=== PATIENT | female | born 2000 | race Caucasian/White ===

== ENCOUNTER 2021-06-22 22:50 | Emergency (ER) | payer OTHER ==
[~2021-06-22] VITALS: Ht 147.3 cm; Wt 90.9 kg
[2021-06-22 23:21] VITALS: BP 130/76
[2021-06-22 23:48] LABS: GLUCOMETER DEV NAME(LOC) AHU.; GLUCOSE,POINT OF CARE 113 MG/DL (70-110)
[2021-06-23 00:09] LABS: APPEARANCE,URINE CLOUDY (CLEAR); BILIRUBIN,URINE NEGATIVE (NEGATIVE); GLUCOSE, URINE (UA) NEGATIVE (NEGATIVE); KETONES,URINE NEGATIVE (NEGATIVE); LEUKOCYTE ESTERASE ,URINE NEGATIVE (NEGATIVE); NITRATE,URINE NEGATIVE (NEGATIVE); OCCULT BLOOD,URINE NEGATIVE (NEGATIVE); PROTEIN,URINE NEGATIVE (NEGATIVE)
[2021-06-23 01:29] LABS: BASOPHILS % (AUTO) 0.6 % (0.0-2.0); EOSINOPHILS % (AUTO) 4.9 % (1.0-6.0); HEMATOCRIT 40.5 % (36-46); HEMOGLOBIN 13.9 g/dL (12.0-16.0); LYMPHOCYTES # (AUTO) 2.9 K/uL (1.0-4.8); LYMPHOCYTES % (AUTO) 37.2 % (22.0-44.0); MEAN CORPUSCULAR HEMOGLOBIN 30.6 pg (26.0-34.0); MEAN CORPUSCULAR HGB CONC 34.2 G/dL (31.0-37.0); MEAN CORPUSCULAR VOLUME 89 fL (80-100); MONOCYTES # (AUTO) 0.6 K/uL (0.1-1.0); MONOCYTES % (AUTO) 7.6 % (2.0-9.0); NEUTROPHILS # (AUTO) 3.9 K/uL (1.8-7.7); NEUTROPHILS % (AUTO) 49.7 % (40.0-70.0); PLATELET COUNT (AUTO) 240 K/uL (150-450); RED BLOOD CELL COUNT(AUTO) 4.54 MIL/uL (4.00-5.20); RED CELL DISTRIBUTION WIDTH 13.1 % (11.5-14.5)
[2021-06-23 01:36] LABS: ANION GAP 8 mmol/L (8-16); CALCIUM, TOTAL 9.4 mg/dL (8.8-10.5); CARBON DIOXIDE 29 mmol/L (22-29); CHLORIDE 105 mmol/L (98-107); CREATININE 0.68 mg/dL (0.60-1.30); GLOMERULAR FILTR. RATE CALC > 60 mL/min (>60); GLUCOSE,RANDOM 90 mg/dL (70-110); POTASSIUM 4.5 mmol/L (3.5-5.1); SODIUM SERUM 142 mmol/L (136-145); UREA NITROGEN, BLOOD 11 mg/dL (7-18)
[2021-06-23 01:48] LABS: ALANINE AMINOTRANSFERASE 112 U/L (12-78); ALKALINE PHOSPHATASE 114 U/L (46-116); ASPARTATE AMINOTRANSFERASE 40 U/L (15-37); BILIRUBIN,TOTAL 0.3 mg/dL (0.1-1.0); HCG,QUANTITATIVE < 1 mIU/mL (0-6); LIPASE 124 U/L (73-393); TOTAL PROTEIN, SERUM 7.5 g/dL (6.4-8.2)
[2021-06-23 02:45] LABS: THYROID STIMULATING HORMONE 0.77 uIU/mL (0.36-3.74)
== END 2021-06-23 03:30 | disposition home or self-care (01) ==
LOC: EMS 22:56
DX: R11.2 Nausea with vomiting, unspecified (principal); R20.2 Paresthesia of skin; R79.89 Other specified abnormal findings of blood chemistry
CPT/HCPCS: 80053; 81003; 82948; 82962; 83690; 84443; 84702; 84703; 85025; 99283

== ENCOUNTER 2021-06-24 14:42 | Emergency (ER) | payer OTHER ==
[~2021-06-24] VITALS: Ht 162.6 cm; Wt 90.9 kg
[2021-06-24 14:44] VITALS: BP 122/71
== END 2021-06-24 17:03 | disposition left against medical advice (07) ==
LOC: EMS 14:45
DX: R10.11 Right upper quadrant pain (principal)
CPT/HCPCS: 99281; 99284; Z7502

== ENCOUNTER 2021-10-21 14:42 | Emergency (ER) | payer OTHER ==
[~2021-10-21] VITALS: Ht 147.3 cm; Wt 85.9 kg
[2021-10-21 14:45] VITALS: BP 124/73
[2021-10-21] MEDS ORDERED: GuaiFENesin/D-METHORPHAN [SUGAR-FREE] 200-20MG/10 ML SYRUP UDCUP PO ONE (15:15)
[2021-10-21] MEDS ORDERED: IBUPROFEN 600 MG TABLET PO ONE (15:15)
[2021-10-21 15:27] LABS: COVID AG,FIA SOURCE NASOPHARYNGEAL
== END 2021-10-21 16:24 | disposition home or self-care (01) ==
LOC: EMS 14:44
DX: J06.9 Acute upper respiratory infection, unspecified (principal); F12.90 Cannabis use, unspecified, uncomplicated; Z20.822 Contact with and (suspected) exposure to COVID-19
CPT/HCPCS: 99283

== ENCOUNTER 2022-01-31 16:39 | Emergency (ER) | payer OTHER ==
[~2022-01-31] VITALS: Ht 147.3 cm; Wt 77.3 kg
[2022-01-31] MEDS ORDERED: POVIDONE-IODINE 10% 15 ML SOLUTION UD TP ONE (17:15)
[2022-01-31] MEDS ORDERED: LIDOCAINE 1%/EPI 1:200,000/PF 30 ML VIAL PERC ONE (17:15)
[2022-01-31 18:01] VITALS: BP 120/65
[2022-01-31] MEDS ORDERED: CEPH500C3 PO (18:27)
[2022-01-31] MEDS ORDERED: IBUP-2070 PO (18:28)
[2022-01-31] MEDS ORDERED: SULF-261 PO (18:28)
[2022-01-31 18:52] LABS: COVID AG,FIA SOURCE NASOPHARYNGEAL
== END 2022-01-31 18:42 | disposition home or self-care (01) ==
LOC: EDUNIT# 16:39 → EMS 16:44
DX: L02.214 Cutaneous abscess of groin (principal); L73.2 Hidradenitis suppurativa; F12.90 Cannabis use, unspecified, uncomplicated; Z20.822 Contact with and (suspected) exposure to COVID-19
CPT/HCPCS: 10060; 87426; 99283; C9803; J3490

== ENCOUNTER 2022-02-02 17:46 | Emergency (ER) | payer OTHER ==
[~2022-02-02] VITALS: Ht 147.3 cm; Wt 80.0 kg
[~2022-02-02 17:46] MED LIST: CEPH-558 PO; IBUP-2070 PO; SULF-261 PO
[2022-02-02 19:00] VITALS: BP 110/82
== END 2022-02-02 19:32 | disposition home or self-care (01) ==
LOC: EMS 17:54
DX: L02.416 Cutaneous abscess of left lower limb (principal); F12.90 Cannabis use, unspecified, uncomplicated
CPT/HCPCS: 99281; 99282; Z7502

== ENCOUNTER 2022-02-05 11:01 | Emergency (ER) | payer OTHER ==
[~2022-02-05] VITALS: Ht 147.3 cm; Wt 81.8 kg
[2022-02-05 11:05] VITALS: BP 98/50
== END 2022-02-05 12:19 | disposition home or self-care (01) ==
LOC: EMS 11:01
DX: S70.12XA Contusion of left thigh, initial encounter (principal); L02.416 Cutaneous abscess of left lower limb; F17.210 Nicotine dependence, cigarettes, uncomplicated; F12.90 Cannabis use, unspecified, uncomplicated; X58.XXXA Exposure to other specified factors, initial encounter; Y93.89 Activity, other specified; Y92.89 Other specified places as the place of occurrence of the external cause; Y99.8 Other external cause status
CPT/HCPCS: 99281; Z7502

== ENCOUNTER 2022-05-16 14:35 | Emergency (ER) | payer OTHER ==
[~2022-05-16] VITALS: Ht 147.3 cm; Wt 77.3 kg
[2022-05-16] MEDS ORDERED: SODIUM CHLORIDE 0.9% 250 ML IRRIG SOLUTION BOTTLE IRRIG ONE (16:00)
[2022-05-16] MEDS ORDERED: LIDOCAINE 1% 10 ML VIAL ID ONE (16:00)
[2022-05-16] MEDS: PERTUSS(ACELL),DIPH,TET VAC/PF 0.5 ML SYRINGE IM. ONE ×2 (16:15→16:52)
[2022-05-16 19:44] VITALS: BP 119/64
[2022-05-16] MEDS ORDERED: CEPH-558 PO (19:45)
== END 2022-05-16 20:13 | disposition home or self-care (01) ==
LOC: EMS 14:35
DX: S61.412A Laceration without foreign body of left hand, initial encounter (principal); F17.210 Nicotine dependence, cigarettes, uncomplicated; F12.90 Cannabis use, unspecified, uncomplicated; W26.0XXA Contact with knife, initial encounter; Y93.89 Activity, other specified; Y92.89 Other specified places as the place of occurrence of the external cause; Y99.8 Other external cause status
CPT/HCPCS: 99283; 90715; 90471; 12001; J3490

== ENCOUNTER 2022-05-30 08:15 | Emergency (ER) | payer OTHER ==
[~2022-05-30] VITALS: Ht 147.3 cm; Wt 77.3 kg
[~2022-05-30 08:15] MED LIST changes: -IBUP-2070 PO; -SULF-261 PO
[2022-05-30 08:16] VITALS: BP 102/60
== END 2022-05-30 08:59 | disposition home or self-care (01) ==
LOC: EMS 08:15
DX: S61.412D Laceration without foreign body of left hand, subsequent encounter (principal); Z48.02 Encounter for removal of sutures; F12.90 Cannabis use, unspecified, uncomplicated; F17.210 Nicotine dependence, cigarettes, uncomplicated; W45.8XXD Other foreign body or object entering through skin, subsequent encounter
CPT/HCPCS: 99281; Z7502

== ENCOUNTER 2022-07-04 09:37 | Emergency (ER) | payer OTHER ==
[~2022-07-04] VITALS: Ht 154.9 cm; Wt 81.8 kg
[2022-07-04 12:17] LABS: BASOPHILS % (AUTO) 0.6 % (0.0-2.0); EOSINOPHILS % (AUTO) 1.2 % (1.0-6.0); HEMATOCRIT 38.9 % (36-46); HEMOGLOBIN 13.4 g/dL (12.0-16.0); LYMPHOCYTES # (AUTO) 1.6 K/uL (1.0-4.8); LYMPHOCYTES % (AUTO) 19.4 % (22.0-44.0); MEAN CORPUSCULAR HEMOGLOBIN 30.4 pg (26.0-34.0); MEAN CORPUSCULAR HGB CONC 34.5 G/dL (31.0-37.0); MEAN CORPUSCULAR VOLUME 88 fL (80-100); MONOCYTES # (AUTO) 0.4 K/uL (0.1-1.0); MONOCYTES % (AUTO) 5.3 % (2.0-9.0); NEUTROPHILS # (AUTO) 6.2 K/uL (1.8-7.7); NEUTROPHILS % (AUTO) 73.5 % (40.0-70.0); PLATELET COUNT (AUTO) 251 K/uL (150-450); RED CELL DISTRIBUTION WIDTH 13.1 % (11.5-14.5)
[2022-07-04 12:45] LABS: ANION GAP 2 mmol/L (8-16); CALCIUM, TOTAL 9.3 mg/dL (8.8-10.5); CARBON DIOXIDE 29 mmol/L (22-29); CHLORIDE 102 mmol/L (98-107); CREATININE 0.69 mg/dL (0.60-1.30); GLOMERULAR FILTR. RATE CALC > 60 mL/min (>60); GLUCOSE,RANDOM 91 mg/dL (70-110); POTASSIUM 3.7 mmol/L (3.5-5.1); SODIUM SERUM 133 mmol/L (136-145); UREA NITROGEN, BLOOD 13 mg/dL (7-18)
[2022-07-04 12:59] LABS: ALANINE AMINOTRANSFERASE 30 U/L (12-78); ALBUMIN 4.1 g/dL (3.4-5.0); ALKALINE PHOSPHATASE 67 U/L (46-116); ASPARTATE AMINOTRANSFERASE 16 U/L (15-37); BILIRUBIN,TOTAL 0.3 mg/dL (0.1-1.0); HCG,QUANTITATIVE < 1 mIU/mL (0-6); TOTAL PROTEIN, SERUM 7.5 g/dL (6.4-8.2)
[2022-07-04 15:21] VITALS: BP 127/74
== END 2022-07-04 16:00 | disposition home or self-care (01) ==
LOC: EMS 09:37
DX: S50.11XA Contusion of right forearm, initial encounter (principal); F17.210 Nicotine dependence, cigarettes, uncomplicated; F12.90 Cannabis use, unspecified, uncomplicated; X58.XXXA Exposure to other specified factors, initial encounter; Y93.84 Activity, sleeping; Y92.89 Other specified places as the place of occurrence of the external cause; Y99.8 Other external cause status
CPT/HCPCS: 80053; 84702; 85025; 87210; 87491; 87591; 99284

== ENCOUNTER 2022-12-07 16:34 | Emergency (ER) | payer OTHER ==
[~2022-12-07] VITALS: Ht 147.3 cm; Wt 72.7 kg
[2022-12-07] MEDS ORDERED: PREN1TAB26 PO (16:40)
[2022-12-07] MEDS ORDERED: ONDA4TAB10 PO (16:40)
[2022-12-07 17:15] LABS: BASOPHILS % (AUTO) 0.5 % (0.0-2.0); EOSINOPHILS % (AUTO) 1.6 % (1.0-6.0); HEMATOCRIT 39.1 % (36-46); HEMOGLOBIN 13.2 g/dL (12.0-16.0); LYMPHOCYTES # (AUTO) 1.7 K/uL (1.0-4.8); LYMPHOCYTES % (AUTO) 18.3 % (22.0-44.0); MEAN CORPUSCULAR HEMOGLOBIN 30.1 pg (26.0-34.0); MEAN CORPUSCULAR HGB CONC 33.7 G/dL (31.0-37.0); MEAN CORPUSCULAR VOLUME 89 fL (80-100); MONOCYTES # (AUTO) 0.7 K/uL (0.1-1.0); MONOCYTES % (AUTO) 6.9 % (2.0-9.0); NEUTROPHILS # (AUTO) 6.8 K/uL (1.8-7.7); NEUTROPHILS % (AUTO) 72.7 % (40.0-70.0); PLATELET COUNT (AUTO) 270 K/uL (150-450); RED BLOOD CELL COUNT(AUTO) 4.37 MIL/uL (4.00-5.20); RED CELL DISTRIBUTION WIDTH 13.2 % (11.5-14.5)
[2022-12-07] MEDS ORDERED: ACETAMINOPHEN 500 MG TABLET PO ONE (17:15)
[2022-12-07] MEDS ORDERED: DOXYLAMINE SUCCINATE 25 MG TABLET PO ONE (17:15)
[2022-12-07] MEDS ORDERED: PYRIDOXINE HCL 50 MG TABLET PO ONE (17:15)
[2022-12-07 17:33] LABS: ANION GAP 7 mmol/L (8-16); CALCIUM, TOTAL 8.4 mg/dL (8.8-10.5); CARBON DIOXIDE 27 mmol/L (22-29); CHLORIDE 102 mmol/L (98-107); CREATININE 0.68 mg/dL (0.60-1.30); GLUCOSE,RANDOM 107 mg/dL (70-110); POTASSIUM 3.4 mmol/L (3.5-5.1); SODIUM SERUM 136 mmol/L (136-145); UREA NITROGEN, BLOOD 9 mg/dL (7-18)
[2022-12-07 17:35] LABS: GLOMERULAR FILTR. RATE CALC > 60 mL/min (>60)
[2022-12-07 17:38] LABS: ALANINE AMINOTRANSFERASE 19 U/L (12-78); ALKALINE PHOSPHATASE 71 U/L (46-116); ASPARTATE AMINOTRANSFERASE 15 U/L (15-37); BILIRUBIN,TOTAL 0.3 mg/dL (0.1-1.0); TOTAL PROTEIN, SERUM 7.7 g/dL (6.4-8.2)
[2022-12-07 18:13] LABS: HCG,QUANTITATIVE 33566 mIU/mL (0-6)
[2022-12-07 19:01] LABS: APPEARANCE,URINE CLEAR (CLEAR); BILIRUBIN,URINE NEGATIVE (NEGATIVE); GLUCOSE, URINE (UA) NEGATIVE (NEGATIVE); KETONES,URINE NEGATIVE (NEGATIVE); LEUKOCYTE ESTERASE ,URINE NEGATIVE (NEGATIVE); NITRATE,URINE NEGATIVE (NEGATIVE); OCCULT BLOOD,URINE TRACE (NEGATIVE); PROTEIN,URINE NEGATIVE (NEGATIVE); SPECIFIC GRAVITIY, URINE 1.008 (1.003-1.030); UROBILINOGEN,URINE <=1.0 mg/dL (<=1.0)
[2022-12-07 19:10] LABS: BACTERIA,URINE None Seen /HPF (None Seen); RBC,URINE 0-2 /HPF (0-2); SQUAMOUS EPITHELIAL CELL,UR None Seen /LPF (None Seen); WBC,URINE None Seen /HPF (0-5)
[2022-12-07] MEDS ORDERED: DOXY1TAB3 PO (19:56)
[2022-12-07 20:16] VITALS: BP 121/65
== END 2022-12-07 20:21 | disposition home or self-care (01) ==
LOC: EMS 16:36
DX: O46.91 Antepartum hemorrhage, unspecified, first trimester (principal); O99.331 Smoking (tobacco) complicating pregnancy, first trimester; F12.90 Cannabis use, unspecified, uncomplicated; Z3A.09 9 weeks gestation of pregnancy
CPT/HCPCS: 76801; 76817; 80053; 81001; 84702; 85025; 86901; 99284

== ENCOUNTER 2022-12-17 13:03 | Emergency (ER) | payer OTHER ==
[~2022-12-17] VITALS: Ht 147.3 cm; Wt 76.4 kg
[~2022-12-17 13:03] MED LIST changes: -CEPH-558 PO; +DOXY1TAB3 PO; +ONDA4TAB10 PO; +PREN1TAB26 PO
[2022-12-17] MEDS ORDERED: PREN-217 PO (13:18)
[2022-12-17 15:39] LABS: BASOPHILS % (AUTO) 0.5 % (0.0-2.0); HEMATOCRIT 40.4 % (36-46); HEMOGLOBIN 13.6 g/dL (12.0-16.0); LYMPHOCYTES # (AUTO) 1.9 K/uL (1.0-4.8); LYMPHOCYTES % (AUTO) 17.5 % (22.0-44.0); MEAN CORPUSCULAR HEMOGLOBIN 30.5 pg (26.0-34.0); MEAN CORPUSCULAR HGB CONC 33.7 G/dL (31.0-37.0); MEAN CORPUSCULAR VOLUME 90 fL (80-100); MONOCYTES # (AUTO) 0.8 K/uL (0.1-1.0); MONOCYTES % (AUTO) 7.4 % (2.0-9.0); NEUTROPHILS # (AUTO) 7.9 K/uL (1.8-7.7); NEUTROPHILS % (AUTO) 72.6 % (40.0-70.0); PLATELET COUNT (AUTO) 272 K/uL (150-450); RED BLOOD CELL COUNT(AUTO) 4.47 MIL/uL (4.00-5.20); RED CELL DISTRIBUTION WIDTH 13.4 % (11.5-14.5)
[2022-12-17 15:49] LABS: ANION GAP 9 mmol/L (8-16); CALCIUM, TOTAL 9.1 mg/dL (8.8-10.5); CARBON DIOXIDE 27 mmol/L (22-29); CHLORIDE 102 mmol/L (98-107); CREATININE 0.54 mg/dL (0.60-1.30); GLOMERULAR FILTR. RATE CALC > 60 mL/min (>60); GLUCOSE,RANDOM 72 mg/dL (70-110); POTASSIUM 3.5 mmol/L (3.5-5.1); SODIUM SERUM 138 mmol/L (136-145); UREA NITROGEN, BLOOD 9 mg/dL (7-18)
[2022-12-17 16:17] LABS: ALANINE AMINOTRANSFERASE 23 U/L (12-78); ALBUMIN 4.1 g/dL (3.4-5.0); ALKALINE PHOSPHATASE 76 U/L (46-116); ASPARTATE AMINOTRANSFERASE 15 U/L (15-37); BILIRUBIN,TOTAL 0.2 mg/dL (0.1-1.0); HCG,QUANTITATIVE 92201 mIU/mL (0-6)
[2022-12-17 17:11] VITALS: BP 130/68
== END 2022-12-17 17:12 | disposition home or self-care (01) ==
LOC: EMS 13:06
DX: O46.91 Antepartum hemorrhage, unspecified, first trimester (principal); Z87.891 Personal history of nicotine dependence; Z3A.08 8 weeks gestation of pregnancy
CPT/HCPCS: 76801; 76817; 80053; 84702; 85025; 99284

== ENCOUNTER 2023-03-07 14:54 | Emergency (ER) | payer OTHER ==
[~2023-03-07] VITALS: Ht 147.3 cm; Wt 86.4 kg
[~2023-03-07 14:54] MED LIST changes: -DOXY1TAB3 PO; -ONDA4TAB10 PO; +PREN-217 PO; -PREN1TAB26 PO
[2023-03-07 16:28] VITALS: BP 119/77
[2023-03-07] MEDS ORDERED: ACET-66 PO (16:54)
[2023-03-07] MEDS ORDERED: POLY238P PO (16:54)
== END 2023-03-07 17:11 | disposition home or self-care (01) ==
LOC: EMS 14:55
DX: O26.892 Other specified pregnancy related conditions, second trimester (principal); O99.212 Obesity complicating pregnancy, second trimester; K59.00 Constipation, unspecified; R51.9 Headache, unspecified; Z3A.00 Weeks of gestation of pregnancy not specified; Z87.891 Personal history of nicotine dependence
CPT/HCPCS: 99282; Z7502

== ENCOUNTER 2023-05-12 02:50 | Emergency (ER) | payer OTHER ==
[~2023-05-12] VITALS: Ht 147.3 cm; Wt 93.6 kg
[~2023-05-12 02:50] MED LIST changes: +ACET-66 PO; +POLY238P PO
[2023-05-12 02:53] VITALS: BP 129/65; PULSE 82; RESP 16; TEMP 98.4
[2023-05-12] MEDS ORDERED: AMOX TR/POT CLAV 875 MG/125 MG TABLET PO ONE (03:00)
[2023-05-12] MEDS ORDERED: BACITRACIN 0.9 GM PACKET OINTMENT TP ONE (03:00)
[2023-05-12 04:01] LABS: BASOPHILS % (AUTO) 0.5 % (0.0-2.0); HEMATOCRIT 35.5 % (36-46); HEMOGLOBIN 12.4 g/dL (12.0-16.0); LYMPHOCYTES % (AUTO) 23.9 % (22.0-44.0); MEAN CORPUSCULAR HEMOGLOBIN 31.1 pg (26.0-34.0); MEAN CORPUSCULAR VOLUME 89 fL (80-100); MONOCYTES # (AUTO) 0.7 K/uL (0.1-1.0); MONOCYTES % (AUTO) 8.7 % (2.0-9.0); NEUTROPHILS # (AUTO) 5.4 K/uL (1.8-7.7); NEUTROPHILS % (AUTO) 63.9 % (40.0-70.0); PLATELET COUNT (AUTO) 219 K/uL (150-450); RED CELL DISTRIBUTION WIDTH 13.4 % (11.5-14.5)
[2023-05-12 04:03] LABS: ANION GAP 11 mmol/L (8-16); CALCIUM, TOTAL 8.6 mg/dL (8.8-10.5); CARBON DIOXIDE 22 mmol/L (22-29); CHLORIDE 101 mmol/L (98-107); CREATININE 0.51 mg/dL (0.60-1.30); GLOMERULAR FILTR. RATE CALC > 60 mL/min (>60); GLUCOSE,RANDOM 138 mg/dL (70-110); POTASSIUM 3.3 mmol/L (3.5-5.1); SODIUM SERUM 134 mmol/L (136-145)
[2023-05-12 04:29] LABS: ALANINE AMINOTRANSFERASE 23 U/L (12-78); ALBUMIN 2.6 g/dL (3.4-5.0); ALKALINE PHOSPHATASE 146 U/L (46-116); ASPARTATE AMINOTRANSFERASE 18 U/L (15-37); BILIRUBIN,TOTAL 0.2 mg/dL (0.1-1.0); HCG,QUANTITATIVE 5105 mIU/mL (0-6); TOTAL PROTEIN, SERUM 6.5 g/dL (6.4-8.2)
[2023-05-12] MEDS ORDERED: AMOX1TAB16 PO (04:46)
== END 2023-05-12 05:15 | disposition left against medical advice (07) ==
LOC: EMS 02:51
DX: O36.8130 Decreased fetal movements, third trimester, not applicable or unspecified (principal); Z3A.29 29 weeks gestation of pregnancy; Z87.891 Personal history of nicotine dependence
CPT/HCPCS: 80053; 84702; 85025; 99283